=== PATIENT | male | born 1985 | race Caucasian/White ===

== ENCOUNTER 2023-11-14 12:11 | Emergency (ER) | payer OTHER, SELFPAY ==
--- NOTE | ~2023-11-14 | CT_ITS ---
EXAMINATION: CT abdomen pelvis w con DATE: 11/14/2023 14:31 INDICATION: Right abdominal pain. TECHNIQUE: Computed tomography (CT) of the abdomen and pelvis was performed with 100 mL Omnipaque 350 intravenous contrast. Automated exposure control and iterative reconstruction technique were employe d. The dose-length product was 1605.31 mGy-cm. COMPARISON: None. FINDINGS: The visualized portions of the lung bases demonstrate mild atelectasis on the left. No pleu ral effusion. The heart size is normal. No pericardial effusion. There is diffuse hepatic steatosis. The gallbladder, spleen, pancreas, adrenal glands, and kidneys are normal. The appendix is normal. Th e proximal small bowel is distended without focal transition point. There are no pathologically enlar ged lymph nodes. There is no free intraperitoneal fluid. There is severe lower lumbar spondylosis. IMPRESSION: 1. Distended proximal small bowel without focal transition point, consistent with adynamic ileus. 2. Diffuse hepatic steatosis. Reviewed, dictated and finalized at location E. IMPRESSION: 1. Distended proximal small bowel without focal transition point, consistent wi th adynamic ileus. 2. Diffuse hepatic steatosis.
--- NOTE | 2023-11-14 12:13 | ED.ABDPAIN ---
HPI - Abdominal Pain General Chief Complaint: Abdominal Pain Stated Complaint: Nausea Time Seen by Provider: 11/14/23 12:12 History of Present Illness HPI narrative: Patient is a healthy 37 year old male here with right sided abdominal pain since around 6 am today. He notes last night he felt normal, watched TV with his partner and had a couple glasses of alcohol. This morning he was woken from his sleep with right sided abdominal pain. The pain wraps into the right flank. Pain is associated with nausea, vomiting, chills, diaphoresis. He denies any blood in his vomit. He has had normal bowel movement today which was non bloody as well as normal urinary output without blood or pain. He has had no prior abdominal surgeries, takes no medications, took nothing for his symptoms before coming into the ER today. He has had some nasal congestion and a mild cough however he is not sure these are related to his symptoms. He does note he has passed several kidney stones at home before without being diagnosed clinically. Related Data Allergies Allergy/AdvReac Type Severity Reaction Status Date / Time No Known Allergies Allergy Unverified 05/07/13 15:36 Review of Systems Review of Systems: All systems reviewed & are unremarkable except as noted in HPI and below Exam Narrative: GENERAL: Well-appearing, well-nourished, and in no acute distress. HEAD: Normocephalic, atraumatic. EYES: PERRLA and EOMI. ENT: Nares clear. Mucous membranes moist. NECK: Supple. CHEST: Clear to auscultation. No respiratory distress. HEART: Regular rate and rhythm. Normal peripheral pulses. ABDOMEN: Soft, RLQ tenderness, R CVA tenderness, nondistended. EXTREMITIES: Normal range of motion. No edema. SKIN: Warm, dry, no rash. NEURO: No focal deficits. Alert and oriented x3. PSYCH: Normal mood and affect. Course Course Emergency Course: Chart review performed. Patient here for right sided abdominal pain x 5 hours, no prior visits in our system. Patient seen and evaluated, does appear to be in some pain, differentials include appendicitis, colitis, nephrolithiasis, UTI, less likely diverticulitis or biliary pathology given location of pain. Pain medication, antiemetics, IVF ordered. Will do CT abdomen pelvis in addition to basic lab work ordered per triage protocol. Patient advised to remain NPO. Patient and partner at bedside agreeable to plan of care. Lab work and imaging reviewed. Minimal elevation in WBC of 10.6, normal renal function, minimal elevation in ALT, non specific. UA negative for UTI, no blood in urine. COVID, influenza, RSV negative. Will reevaluate patient. He did have a bowel movement this morning, he appears to have continued bowel function. Will discuss discharge vs hospital observation. Patient has had significant relief of pain with morphine. Shared decision making regarding discharge home versus hospital observation, he would prefer to be discharged home. Discussed Tylenol, ibuprofen for pain, will give Zofran as needed for nausea. Advised to continue hydrating at home and follow-up with primary care doctor in the next couple of days, should contact primary care doctor tomorrow to coordinate follow-up. Strict return precautions discussed and should his pain become severe he develops any intractable nausea or vomiting or fever this should prompt him to return to the emergency department for re-evaluation. The results of pertinent diagnostic studies and exam findings were discussed. The patient?s provisional diagnosis and plan of care were discussed with the patient and present family. The patient and/or present family expressed understanding of the diagnosis and plan. The nurse was instructed to provide written instructions and appropriate follow-up information. The patient understands their need and responsibility to obtain additional follow-up as instructed. The risks of medications administered and prescribed were discussed with the patient and family
[2023-11-14 12:15] VITALS: BP 169/112; PULSE 82; RESP 22; TEMP 36.5; O2SAT 99
[2023-11-14 12:36] LABS: Basophils Absolute Auto 0.1 K/mm3 (0.0-0.1); Basophils Percent Auto 0.9 % (0.2-1.2); Eosinophils Absolute Auto 0.2 K/mm3 (0-0.3); Eosinophils Percent Auto 2.3 % (0-4.4); Hematocrit 47.6 % (42.0-52.0); Hemoglobin 16.4 g/dL (14.0-18.0); Immature Granulocyte Absolute 0.04 K/mm3 (0.00-0.031); Immature Granulocyte Percent A 0.4 % (0-0.5); Lymphocytes Absolute Auto 2.23 K/mm3 (0.9-3.2); Mean Corpuscular HGB Conc 34.5 g/dl (32-36); Mean Corpuscular Hemoglobin 31.1 pg (26-34); Mean Corpuscular Volume 90.3 fl (80-100); Mean Platelet Volume 9.6 fl (7.4-10.4); Monocytes Absolute Auto 0.5 K/mm3 (0.1-0.6); Monocytes Percent Auto 4.6 % (2.6-8.5); Neutrophils Absolute Auto 7.5 K/mm3 (1.3-6.7); Neutrophils Percent Auto 70.8 % (45.5-73.1); Platelet Count Result 248 k/mm3 (150-375); Red Blood Count 5.27 M/mm3 (4.6-6.20); Red Cell Distribution Width 13.2 % (11.5-14.5); White Blood Count 10.6 K/mm3 (4.5-10.0)
[2023-11-14 12:51] LABS: Alanine Aminotransferase 51 U/L (6-50); Albumin Level 4.8 g/dL (3.5-5.1); Alkaline Phosphatase 88 U/L (38-126); Anion Gap 11 mmol/L (4-12); Aspartate Amino Transferase 37 U/L (17-59); Bilirubin,Total 1.2 mg/dL (0.2-1.3); Blood Urea Nitrogen 9 mg/dL (9-20); Carbon Dioxide 20 mmol/L (22-30); Chloride 106 mmol/L (98-107); Estimated CRCL calculation 155 ml/min; Estimated Glomerular Filt Rate > 60; Glucose 102 mg/dL (65-110); Lipase 106 U/L (23-300); Potassium 4.2 mmol/L (3.4-5.0); Sodium 137 mmol/L (137-145)
[2023-11-14] MEDS: LACTATED RINGERS 1,000 ML 999 ML IV CONT (13:21)
[2023-11-14] MEDS: ONDANSETRON INJ 4 MG/2 ML VIAL IV PUSH (13:22)
[2023-11-14] MEDS: MORPHINE SULFATE (*CRX) 4 MG/ML INJ IV PUSH (13:22)
[2023-11-14 13:35] LABS: Appearance Urine Clear (Clear); Bacteria Urine None Seen /hpf; Bilirubin Urine Negative (Negative); Blood Urine Negative (Negative); Color Urine Yellow (Yellow); Glucose Urine UA Negative (Negative); Ketones Urine Negative (Negative); Leukocyte Esterase Ur Negative LEU/UL (Negative); Nitrate Urine Negative (Negative); Non Pathogenic Casts 0-2; Protein Urine 1+ mg/dL (Negative); RBC Urine 0-2 /hpf (0-2); Specific Grav Ur 1.019 (1.001-1.035); Squamous Epithelial Cell Urine None Seen /hpf (Few); WBC Urine 0-5 /hpf (0-3); pH Urine >=9.0 (5.0-9.0)
[2023-11-14 13:37] LABS: Add Urine Microscopic? YES
[2023-11-14 14:18] LABS: Influenza A QL RT-PCR Negative (Negative); Influenza B QL RT-PCR Negative (Negative); RSV RNA, RT-PCR Negative (Negative); SARS-CoV-2 RNA PCR Negative (Negative)
[2023-11-14 14:59] VITALS: PULSE 92; RESP 20; O2SAT 99
[2023-11-14 15:21] VITALS: BP 169/79; PULSE 90; RESP 18; TEMP 36.8; O2SAT 99
== END 2023-11-14 15:23 | disposition home or self-care (01) ==
PROVIDERS: Emergency Provider Student in an Organized Health Care Education/Training Program
DX: K56.0 Paralytic ileus (principal); K76.0 Fatty (change of) liver, not elsewhere classified
CPT/HCPCS: 36415; 74177; 80053; 81001; 83690; 85025; 87637; 96361; 96374; 99283; 99284; J2270; J2405; J7120; Q9967